=== PATIENT | female | born 1960 | race Caucasian/White ===

== ENCOUNTER 2020-11-19 21:56 | Emergency (ER) | payer OTHER, BC ==
[2020-11-19 22:22] VITALS: BP 131/89; PULSE 112; TEMP 98.5; BMI 27.6
== END 2020-11-19 22:56 | disposition home or self-care (01) ==
LOC: JER 21:56 → JERFT 21:56
DX: M20.011 Mallet finger of right finger(s) (principal)
CPT/HCPCS: 73140-TC-RT-FY; 99282-25